=== PATIENT | male | born 1975 | race Caucasian/White ===

== ENCOUNTER 2018-04-29 21:17 | Emergency (ER) | payer BC ==
[~2018-04-29] VITALS: Ht 170.2 cm; Wt 90.7 kg
[2018-04-29 21:25] VITALS: BP 134/98
[2018-04-29] MEDS ORDERED: KETOROLAC TROMETHAMINE INJ 30 MG/ML VIAL ONE (21:46)
[2018-04-29] MEDS ORDERED: MORPHINE SULFATE INJ 4 MG/ML DISP.SYRIN ONE (21:46)
[2018-04-29] MEDS ORDERED: MORPHINE SULFATE INJ 4 MG/ML DISP.SYRIN IM ONE (22:00)
[2018-04-29] MEDS ORDERED: KETOROLAC TROMETHAMINE INJ 60 MG/2 ML VIAL IM ONE (22:00)
== END 2018-04-29 21:56 | disposition home or self-care (01) ==
LOC: ER 21:18
DX: K08.89 Other specified disorders of teeth and supporting structures (principal); Z88.0 Allergy status to penicillin
CPT/HCPCS: 96372 ×2; 99284; A4606; J1885; J2270; Z7610